=== PATIENT | female | born 1935 | race Caucasian/White ===

== ENCOUNTER 2016-06-19 10:49 | Outpatient (CLI) | payer MEDICARE, OTHER ==
[2015-06-09 06:16] VITALS: BP 108/67
[2016-06-19 11:42] LABS: eGFR (African) > 60; eGFR (Non-African) > 60
== END 2016-06-19 10:50 ==
LOC: LAB 10:49
PROVIDERS: ATTEND Clinical Nurse Specialist Medical-Surgical
DX: M81.0 Age-related osteoporosis without current pathological fracture (principal); E55.9 Vitamin D deficiency, unspecified; E21.3 Hyperparathyroidism, unspecified; Z87.310 Personal history of (healed) osteoporosis fracture; Z82.62 Family history of osteoporosis
CPT/HCPCS: 36415; 80053; 82306; 83970

== ENCOUNTER 2016-12-04 10:09 | Inpatient (IN) | payer MEDICARE, OTHER ==
[2016-12-04 13:25] VITALS: BMI 38.7
[2016-12-04] MEDS ORDERED: HYDROcodone /APAP 5/325 1 EACH TABLET PO PRN (19:25)
[2016-12-04] MEDS ORDERED: POTASSIUM CHLORIDE 20 MEQ TABLET.ER PO ONE (19:51)
[2016-12-04] MEDS: SIMVASTATIN 40 MG TABLET PO SCH ×2 (20:55→21:06)
[2016-12-04] MEDS: ASPIRIN 325 MG TABLET PO SCH (20:55)
[2016-12-04] MEDS: OXYBUTYNIN CHLORIDE 5 MG TABLET PO SCH ×2 (20:56→21:32)
[2016-12-04] MEDS: GABAPENTIN 300 MG CAPSULE PO SCH (20:56)
[2016-12-04] MEDS: SULFAMETHOXAZOLE/TRIMETHOPRIM 1 EACH TABLET PO SCH ×2 (20:56→21:06)
[2016-12-04] MEDS: PSYLLIUM SEED 1 EACH PACKET PO SCH (21:06)
[2016-12-04] MEDS ORDERED: PHARMACY KEY 1 EACH EACH MC ONE (21:11)
[2016-12-04] MEDS: PROBENECID PO SCH (21:32)
[2016-12-04] MEDS: FORTEO SQ SCH (21:32)
[2016-12-04] MEDS: COLCHICINE PO SCH (21:32)
[2016-12-05 06:22] LABS: BASOPHILS % 0.5 (0.0-1.5); EOSINOPHILS % 6.6 % (0.0-6.8); MEAN CORPUSCULAR VOLUME 86.9 fl (80.0-100.0); MONOCYTES % 8.8 % (0.0-11.0); NEUTROPHILS # 3.3 # k/uL (1.4-7.7)
[2016-12-05 06:39] LABS: eGFR (African) > 60; eGFR (Non-African) > 60
[2016-12-05] MEDS: OXYBUTYNIN CHLORIDE 5 MG TABLET PO SCH ×2 (08:37→19:30)
[2016-12-05] MEDS: COLCHICINE PO SCH ×2 (08:38→19:32)
[2016-12-05] MEDS: ASPIRIN 325 MG TABLET PO SCH ×2 (08:38→19:30)
[2016-12-05] MEDS: SULFAMETHOXAZOLE/TRIMETHOPRIM 1 EACH TABLET PO SCH ×2 (08:38→19:30)
[2016-12-05] MEDS: FUROSEMIDE 40 MG TABLET PO SCH (08:38)
[2016-12-05] MEDS: PROBENECID PO SCH ×2 (08:38→19:32)
[2016-12-05] MEDS: GABAPENTIN 300 MG CAPSULE PO SCH ×2 (08:38→19:30)
--- NOTE | 2016-12-05 10:33 | History and Physical Report ---
CHIEF COMPLAINT: Left total shoulder revision. HISTORY OF PRESENT ILLNESS: This is a 81-year-old female who is a patient of Dr. Tad Herrera here in [place] who presented after a referral to Dr. Eric Soni for a left shoulder revision. She had a left shoulder replacement done 2 years ago and it had become somewhat loose. In the interim, she had a right total shoulder replacement and that has gone without any incident. She came back and saw Dr. Soni last for revision and that was performed at [facility] and she has had a fairly unremarkable postoperative course. PAST MEDICAL HISTORY: 1. History of osteoarthritis. 2. History of parathyroid adenoma. 3. Hypertension. 4. Gout. 5. Chronic urinary incontinence. 6. Chronic pedal edema. 7. Constipation. 8. Hyperlipidemia. PAST SURGICAL HISTORY: 1. Bilateral shoulder replacements. 2. Bilateral total knee replacements. 3. Cholecystectomy. 4. Ankle fusion. 5. Parathyroidectomy. 6. Bladder suspension. 7. Back surgery x2. 8. Hip arthroplasties. 9. Total abdominal hysterectomy. CURRENT MEDICATIONS: She comes to us on the following medications: 1. Hydrocodone/acetaminophen 5/325 mg 1 to 2 p.o. q.4 hours p.r.n. pain. 2. Probenecid-colchicine 500/0.5 mg 1 p.o. b.i.d. for 7 days. 3. Metamucil 1 pack daily. 4. Bactrim DS 1 p.o. b.i.d. for 5 days. 5. Lovastatin 40 mg daily. 6. Potassium chloride 20 mEq p.o. daily. 7. Senokot S 3 p.o. daily p.r.n. constipation. 8. Gabapentin 300 mg p.o. b.i.d. 9. Lasix 40 mg p.o. daily. 10. Oxybutynin XL 10 mg p.o. b.i.d. 11. Forteo 20 mcg at bedtime. ALLERGIES: She is allergic to no known medications. SOCIAL HISTORY: She has been now for the last 3 years. Her had to be cared for the last 5 years of his life. She lives independently now. She has never smoked. She has never used any tobacco at all. She does not drink any alcohol. FAMILY HISTORY: Her father of a heart attack. Mother of cancer. She cannot remember exactly what kind of cancer that it was. She has a significant family history of osteoarthritis and obesity. PHYSICAL EXAMINATION: General: This is a very pleasant, obese, but alert and oriented 81-year-old female who appears to be approximately her stated age. Vital Signs: T: 97.4, P: 79, R: 18, BP: 143/68. Pulse oximetry is 95% on room air. HEENT: Shows her head to be normocephalic and atraumatic. Mucous membranes are moist. Neck: No JVD is noted. Lungs: Clear. Heart: Regular. Breast Exam: Her formal breast examination is deferred. Abdomen: Her abdomen is protuberant and obese. Extremities: She does have a dressing on her left shoulder, as well as a sling in place, from her left shoulder replacement. A large linear scar which runs parallel to the long axis of the right humerus is also noted on the anterior aspect of the right shoulder from a total shoulder replacement. Scars from bilateral knee replacements are noted. About 1+ edema in bilateral lower extremities is identified. Left ankle fusion scar is identified. Skin: Skin is intact. ASSESSMENT: 1. Status post left total shoulder replacement, which is a revision. 2. Hypertension. 3. Obesity. 4. Gout. 5. Hyperlipidemia. 6. Deep vein thrombosis (DVT) prophylaxis. PLAN: 1. I had a discussion with Dr. Soni's nurse practitioner today. He recommended only that we have Jolanta on aspirin 325 mg p.o. b.i.d. for DVT prophylaxis. I have gone ahead and placed her in CHRISTELLE hose. 2. Continue her current medications. 3. Occupational therapy and physical therapy consults were obtained. 4. Plan is for her to be discharged to home when she is ready to go. cc: Dr. Tad WHITE
[2016-12-05] MEDS: PSYLLIUM SEED 1 EACH PACKET PO SCH (12:16)
[2016-12-05] MEDS: TRIAMCINOLONE ACETONIDE 0.1% 80GM TUBE TP SCH ×2 (12:17→19:31)
[2016-12-05] MEDS: POTASSIUM CHLORIDE 20 MEQ TABLET.ER PO SCH (12:17)
[2016-12-05] MEDS: SIMVASTATIN 40 MG TABLET PO SCH (19:30)
[2016-12-05] MEDS: FORTEO SQ SCH (19:31)
[2016-12-06] MEDS: SULFAMETHOXAZOLE/TRIMETHOPRIM 1 EACH TABLET PO SCH ×2 (09:49→19:58)
[2016-12-06] MEDS: GABAPENTIN 300 MG CAPSULE PO SCH ×2 (09:50→19:59)
[2016-12-06] MEDS: OXYBUTYNIN CHLORIDE 5 MG TABLET PO SCH ×2 (09:50→19:58)
[2016-12-06] MEDS: ASPIRIN 325 MG TABLET PO SCH ×2 (09:50→19:57)
[2016-12-06] MEDS: COLCHICINE PO SCH ×2 (09:51→20:00)
[2016-12-06] MEDS: PROBENECID PO SCH ×2 (09:51→20:00)
[2016-12-06] MEDS: FUROSEMIDE 40 MG TABLET PO SCH (09:51)
[2016-12-06] MEDS: POTASSIUM CHLORIDE 20 MEQ TABLET.ER PO SCH (09:52)
[2016-12-06] MEDS: TRIAMCINOLONE ACETONIDE 0.1% 80GM TUBE TP SCH ×2 (09:52→19:59)
[2016-12-06] MEDS: PSYLLIUM SEED 1 EACH PACKET PO SCH (13:11)
[2016-12-06] MEDS: SIMVASTATIN 40 MG TABLET PO SCH (19:59)
[2016-12-06] MEDS: FORTEO SQ SCH (20:04)
[2016-12-07] MEDS: FUROSEMIDE 40 MG TABLET PO SCH (08:09)
[2016-12-07] MEDS: OXYBUTYNIN CHLORIDE 5 MG TABLET PO SCH ×2 (08:09→20:19)
[2016-12-07] MEDS: TRIAMCINOLONE ACETONIDE 0.1% 80GM TUBE TP SCH ×2 (08:09→20:21)
[2016-12-07] MEDS: GABAPENTIN 300 MG CAPSULE PO SCH ×2 (08:09→20:22)
[2016-12-07] MEDS: POTASSIUM CHLORIDE 20 MEQ TABLET.ER PO SCH (08:09)
[2016-12-07] MEDS: SULFAMETHOXAZOLE/TRIMETHOPRIM 1 EACH TABLET PO SCH ×2 (08:09→20:19)
[2016-12-07] MEDS: ASPIRIN 325 MG TABLET PO SCH ×2 (08:09→20:18)
[2016-12-07] MEDS: COLCHICINE PO SCH (08:10)
[2016-12-07] MEDS: PROBENECID PO SCH (08:10)
[2016-12-07] MEDS: PSYLLIUM SEED 1 EACH PACKET PO SCH (11:15)
[2016-12-07] MEDS: PROBENECID COLCHICINE PO SCH (20:22)
[2016-12-07] MEDS: SIMVASTATIN 40 MG TABLET PO SCH (20:23)
[2016-12-07] MEDS: TERIPARATIDE SQ SCH (20:26)
[2016-12-08] MEDS: ASPIRIN 325 MG TABLET PO SCH ×2 (07:25→19:56)
[2016-12-08] MEDS: OXYBUTYNIN CHLORIDE 5 MG TABLET PO SCH ×2 (07:26→19:56)
[2016-12-08] MEDS: TRIAMCINOLONE ACETONIDE 0.1% 80GM TUBE TP SCH ×2 (07:26→20:18)
[2016-12-08] MEDS: SULFAMETHOXAZOLE/TRIMETHOPRIM 1 EACH TABLET PO SCH ×2 (07:26→19:56)
[2016-12-08] MEDS: POTASSIUM CHLORIDE 20 MEQ TABLET.ER PO SCH (07:28)
[2016-12-08] MEDS: FUROSEMIDE 40 MG TABLET PO SCH (07:29)
[2016-12-08] MEDS: GABAPENTIN 300 MG CAPSULE PO SCH ×2 (07:29→19:56)
[2016-12-08] MEDS: PROBENECID COLCHICINE PO SCH ×2 (07:30→19:56)
[2016-12-08] MEDS: PSYLLIUM SEED 1 EACH PACKET PO SCH (11:44)
[2016-12-08] MEDS: SIMVASTATIN 40 MG TABLET PO SCH (19:56)
[2016-12-08] MEDS: TERIPARATIDE SQ SCH (19:57)
[2016-12-09] MEDS: PSYLLIUM SEED 1 EACH PACKET PO SCH (06:27)
[2016-12-09] MEDS: ASPIRIN 325 MG TABLET PO SCH ×2 (07:32→19:54)
[2016-12-09] MEDS: OXYBUTYNIN CHLORIDE 5 MG TABLET PO SCH ×2 (07:33→19:54)
[2016-12-09] MEDS: SULFAMETHOXAZOLE/TRIMETHOPRIM 1 EACH TABLET PO SCH ×2 (07:33→19:54)
[2016-12-09] MEDS: GABAPENTIN 300 MG CAPSULE PO SCH ×2 (07:34→19:54)
[2016-12-09] MEDS: FUROSEMIDE 40 MG TABLET PO SCH (07:35)
[2016-12-09] MEDS: POTASSIUM CHLORIDE 20 MEQ TABLET.ER PO SCH (07:35)
[2016-12-09] MEDS: TRIAMCINOLONE ACETONIDE 0.1% 80GM TUBE TP SCH ×2 (07:36→19:55)
[2016-12-09] MEDS: PROBENECID COLCHICINE PO SCH ×2 (09:47→19:56)
[2016-12-09] MEDS: SIMVASTATIN 40 MG TABLET PO SCH (19:54)
[2016-12-09] MEDS: TERIPARATIDE SQ SCH (19:55)
[2016-12-10] MEDS: PSYLLIUM SEED 1 EACH PACKET PO SCH (05:53)
[2016-12-10] MEDS: ASPIRIN 325 MG TABLET PO SCH ×2 (07:33→19:44)
[2016-12-10] MEDS: OXYBUTYNIN CHLORIDE 5 MG TABLET PO SCH ×2 (07:33→19:43)
[2016-12-10] MEDS: TRIAMCINOLONE ACETONIDE 0.1% 80GM TUBE TP SCH ×2 (07:34→19:44)
[2016-12-10] MEDS: SULFAMETHOXAZOLE/TRIMETHOPRIM 1 EACH TABLET PO SCH ×2 (07:34→19:43)
[2016-12-10] MEDS: POTASSIUM CHLORIDE 20 MEQ TABLET.ER PO SCH (07:35)
[2016-12-10] MEDS: FUROSEMIDE 40 MG TABLET PO SCH (07:35)
[2016-12-10] MEDS: GABAPENTIN 300 MG CAPSULE PO SCH ×2 (07:36→19:44)
[2016-12-10] MEDS: PROBENECID COLCHICINE PO SCH ×2 (07:37→19:45)
[2016-12-10] MEDS: SIMVASTATIN 40 MG TABLET PO SCH (19:43)
[2016-12-10] MEDS: TERIPARATIDE SQ SCH (19:44)
[2016-12-11] MEDS: PSYLLIUM SEED 1 EACH PACKET PO SCH (05:56)
[2016-12-11] MEDS: SULFAMETHOXAZOLE/TRIMETHOPRIM 1 EACH TABLET PO SCH ×2 (07:20→20:14)
[2016-12-11] MEDS: OXYBUTYNIN CHLORIDE 5 MG TABLET PO SCH ×2 (07:21→20:14)
[2016-12-11] MEDS: GABAPENTIN 300 MG CAPSULE PO SCH ×2 (07:21→20:14)
[2016-12-11] MEDS: ASPIRIN 325 MG TABLET PO SCH ×2 (07:21→20:14)
[2016-12-11] MEDS: FUROSEMIDE 40 MG TABLET PO SCH (07:21)
[2016-12-11] MEDS: POTASSIUM CHLORIDE 20 MEQ TABLET.ER PO SCH (07:22)
[2016-12-11] MEDS: PROBENECID COLCHICINE PO SCH ×2 (07:22→20:15)
[2016-12-11] MEDS: TRIAMCINOLONE ACETONIDE 0.1% 80GM TUBE TP SCH ×2 (07:22→20:14)
[2016-12-11] MEDS: SIMVASTATIN 40 MG TABLET PO SCH (20:15)
[2016-12-11] MEDS: TERIPARATIDE SQ SCH (20:20)
[2016-12-12] MEDS: PSYLLIUM SEED 1 EACH PACKET PO SCH (05:40)
[2016-12-12] MEDS: FUROSEMIDE 40 MG TABLET PO SCH (07:32)
[2016-12-12] MEDS: ASPIRIN 325 MG TABLET PO SCH ×2 (07:32→19:52)
[2016-12-12] MEDS: GABAPENTIN 300 MG CAPSULE PO SCH ×2 (07:32→19:52)
[2016-12-12] MEDS: SULFAMETHOXAZOLE/TRIMETHOPRIM 1 EACH TABLET PO SCH ×2 (07:32→19:52)
[2016-12-12] MEDS: OXYBUTYNIN CHLORIDE 5 MG TABLET PO SCH ×2 (07:32→19:52)
[2016-12-12] MEDS: POTASSIUM CHLORIDE 20 MEQ TABLET.ER PO SCH (07:32)
[2016-12-12] MEDS: PROBENECID COLCHICINE PO SCH (07:33)
--- NOTE | 2016-12-12 10:40 | Inpatient Progress Note ---
Subjective - Required Recertification Statement I anticipate X number of days because-include discharge plan: 7 - Review of Systems Events since last encounter: Jolanta is doing well. She is participating in therapy. She denies that she is having any pain currently. She is going down to have her hair done today. General: Denies: Chills HEENT: Denies: Head Aches, Visual Changes Pulmonary: Denies: Dyspnea, Cough Cardiovascular: Denies: Chest Pain, Palpitations Gastrointestinal: Denies: Nausea, Vomiting Genitourinary: Denies: Dysuria, Frequency Musculoskeletal: Shoulder Pain (very minimal). Denies: Neck Pain Neurological: Denies: Weakness, Change in Speech, Confusion Objective - Exam Vitals and I&O: Vital Signs Temp 97.6 F 12/12/16 09:00 Pulse 77 12/12/16 09:00 Resp 16 12/12/16 09:00 BP 109/55 12/12/16 09:00 Pulse Ox 96 12/12/16 09:00 Intake & Output 12/11/16 12/11/16 12/12/16 11:59 23:59 11:59 Intake Total 720 860 240 Balance 720 860 240 Weight 101.06 kg 101.06 kg Intake: Oral 720 860 240 Other: Voiding Method Diaper Toilet Toilet # Voids 2 3 2 General: Alert, Oriented to Person, Oriented to Place, Oriented to Time, Cooperative, Obese HEENT: Atraumatic, PERRLA, EOMI Neck: Supple, No JVD Lungs: Clear to auscultation. No: Respiratory Distress Cardiovascular: Regular rate Abdomen: Normal bowel sounds Extremities: No edema Skin: Normal, [place], Warm Neurological: Generalized Weakness (and incoordination) Psych/Mental Status: Mental status NL - Results Results: Laboratory Results WBC 5.60 K/ul (4.00-12.00) 12/05/16 06:00 RBC 4.16 M/ul (3.90-5.20) 12/05/16 06:00 Hgb 12.0 g/dL (12.0-16.0) 12/05/16 06:00 Hct 36.1 % (34.5-46.5) 12/05/16 06:00 MCV 86.9 fl (80.0-100.0) 12/05/16 06:00 MCH 29.0 pg (28.0-34.0) 12/05/16 06:00 MCHC 33.3 g/dL (30.0-36.0) 12/05/16 06:00 RDW 14.6 % (11.3-14.3) H 12/05/16 06:00 Plt Count 254 K/mm3 (130-400) 12/05/16 06:00 Neut % (Auto) 59.7 % (39.0-79.0) 12/05/16 06:00 Lymph % (Auto) 22.0 % (16.0-50.0) 12/05/16 06:00 Levy % (Auto) 8.8 % (0.0-11.0) 12/05/16 06:00 Eos % (Auto) 6.6 % (0.0-6.8) 12/05/16 06:00 Baso % (Auto) 0.5 (0.0-1.5) 12/05/16 06:00 Neut # (Auto) 3.3 # k/uL (1.4-7.7) 12/05/16 06:00 Lymph # (Auto) 1.2 # k/uL (0.6-4.0) 12/05/16 06:00 Levy # (Auto) 0.5 # k/uL (0.0-0.9) 12/05/16 06:00 Eos # (Auto) 0.4 # k/uL (0.0-0.6) 12/05/16 06:00 Baso # (Auto) 0.0 # k/uL (0.0-0.5) 12/05/16 06:00 Reactive Lymphs % 2.4 % (0.0-5.0) 12/05/16 06:00 Reactive Lymphs # 0.1 # k/uL (0.0-0.8) 12/05/16 06:00 Sodium 137 mmol/L (136-145) 12/05/16 06:00 Potassium 3.9 mmol/L (3.5-5.0) 12/05/16 06:00 Chloride 96 mmol/L (98-110) L 12/05/16 06:00 Carbon Dioxide 32 mmol/L (20-32) 12/05/16 06:00 BUN 21 mg/dL (10-26) 12/05/16 06:00 Creatinine 1.1 mg/dL (0.4-1.5) 12/05/16 06:00 Estimated Creat Clear 69 12/05/16 06:00 Est GFR ( Amer) > 60 (60-) 12/05/16 06:00 Est GFR (Non-Af Amer) > 60 (60-) 12/05/16 06:00 Glucose 101 mg/dL (70-99) H 12/05/16 06:00 Calcium 9.2 mg/dL (8.5-10.5) 12/05/16 06:00 Total Bilirubin 0.3 mg/dL (0.2-1.2) 12/05/16 06:00 AST 28 U/L (0-41) 12/05/16 06:00 ALT 15 U/L (0-45) 12/05/16 06:00 Alkaline Phosphatase 156 U/L (46-116) H 12/05/16 06:00 Total Protein 6.6 g/dL (6.0-8.5) 12/05/16 06:00 Albumin 4.0 g/dL (3.0-5.5) 12/05/16 06:00 Assessment/Plan - Assessment/Plan (1) Aftercare following left shoulder joint replacement surgery Status: Acute Current Visit: Yes (2) Hypertension Status: Acute Current Visit: No (3) Gout Status: Acute Current Visit: Yes Assessment: Stable and without flare (4) Obesity (BMI 30.0-34.9) Status: Acute Current Visit: Yes Assessment: Stable
[2016-12-12] MEDS: TRIAMCINOLONE ACETONIDE 0.1% 80GM TUBE TP SCH ×2 (13:33→19:53)
[2016-12-12] MEDS: SIMVASTATIN 40 MG TABLET PO SCH (19:52)
[2016-12-12] MEDS: TERIPARATIDE SQ SCH (19:53)
[2016-12-13] MEDS: OXYBUTYNIN CHLORIDE 5 MG TABLET PO SCH ×2 (08:22→21:37)
[2016-12-13] MEDS: POTASSIUM CHLORIDE 20 MEQ TABLET.ER PO SCH (08:22)
[2016-12-13] MEDS: TRIAMCINOLONE ACETONIDE 0.1% 80GM TUBE TP SCH ×2 (08:22→21:38)
[2016-12-13] MEDS: SULFAMETHOXAZOLE/TRIMETHOPRIM 1 EACH TABLET PO SCH ×2 (08:22→21:36)
[2016-12-13] MEDS: ASPIRIN 325 MG TABLET PO SCH ×2 (08:22→21:37)
[2016-12-13] MEDS: GABAPENTIN 300 MG CAPSULE PO SCH ×2 (08:22→21:37)
[2016-12-13] MEDS: FUROSEMIDE 40 MG TABLET PO SCH (08:22)
[2016-12-13] MEDS: PSYLLIUM SEED 1 EACH PACKET PO SCH (11:10)
[2016-12-13] MEDS: SIMVASTATIN 40 MG TABLET PO SCH (21:37)
[2016-12-13] MEDS: TERIPARATIDE SQ SCH (21:38)
[2016-12-14] MEDS: PSYLLIUM SEED 1 EACH PACKET PO SCH (05:31)
[2016-12-14] MEDS: ASPIRIN 325 MG TABLET PO SCH ×2 (07:24→20:19)
[2016-12-14] MEDS: SULFAMETHOXAZOLE/TRIMETHOPRIM 1 EACH TABLET PO SCH (07:24)
[2016-12-14] MEDS: OXYBUTYNIN CHLORIDE 5 MG TABLET PO SCH ×2 (07:24→20:19)
[2016-12-14] MEDS: TRIAMCINOLONE ACETONIDE 0.1% 80GM TUBE TP SCH ×2 (07:24→20:20)
[2016-12-14] MEDS: GABAPENTIN 300 MG CAPSULE PO SCH ×2 (07:25→20:19)
[2016-12-14] MEDS: POTASSIUM CHLORIDE 20 MEQ TABLET.ER PO SCH (07:25)
[2016-12-14] MEDS: FUROSEMIDE 40 MG TABLET PO SCH (07:25)
[2016-12-14] MEDS: SIMVASTATIN 40 MG TABLET PO SCH (20:19)
[2016-12-14] MEDS: TERIPARATIDE SQ SCH (20:20)
[2016-12-15] MEDS: OXYBUTYNIN CHLORIDE 5 MG TABLET PO SCH ×2 (07:44→20:47)
[2016-12-15] MEDS: ASPIRIN 325 MG TABLET PO SCH ×2 (07:44→20:47)
[2016-12-15] MEDS: TRIAMCINOLONE ACETONIDE 0.1% 80GM TUBE TP SCH ×2 (07:45→20:47)
[2016-12-15] MEDS: FUROSEMIDE 40 MG TABLET PO SCH (07:45)
[2016-12-15] MEDS: POTASSIUM CHLORIDE 20 MEQ TABLET.ER PO SCH (07:45)
[2016-12-15] MEDS: GABAPENTIN 300 MG CAPSULE PO SCH ×2 (07:45→20:48)
[2016-12-15] MEDS: PSYLLIUM SEED 1 EACH PACKET PO SCH (11:27)
[2016-12-15] MEDS: SIMVASTATIN 40 MG TABLET PO SCH (20:48)
[2016-12-15] MEDS: TERIPARATIDE SQ SCH (20:51)
[2016-12-15] MEDS: SENNOSIDES/DOCUSATE SODIUM 1 EACH TABLET PO PRN (20:51)
[2016-12-16] MEDS: TRIAMCINOLONE ACETONIDE 0.1% 80GM TUBE TP SCH ×2 (08:08→18:49)
[2016-12-16] MEDS: OXYBUTYNIN CHLORIDE 5 MG TABLET PO SCH ×2 (08:08→18:48)
[2016-12-16] MEDS: ASPIRIN 325 MG TABLET PO SCH ×2 (08:08→18:49)
[2016-12-16] MEDS: POTASSIUM CHLORIDE 20 MEQ TABLET.ER PO SCH (08:08)
[2016-12-16] MEDS: FUROSEMIDE 40 MG TABLET PO SCH (08:09)
[2016-12-16] MEDS: GABAPENTIN 300 MG CAPSULE PO SCH ×2 (08:09→18:50)
[2016-12-16] MEDS: PSYLLIUM SEED 1 EACH PACKET PO SCH (11:06)
[2016-12-16] MEDS: SIMVASTATIN 40 MG TABLET PO SCH (18:50)
[2016-12-16] MEDS: TERIPARATIDE SQ SCH (18:52)
[2016-12-17] MEDS: PSYLLIUM SEED 1 EACH PACKET PO SCH (06:45)
[2016-12-17] MEDS: ASPIRIN 325 MG TABLET PO SCH ×2 (08:09→20:03)
[2016-12-17] MEDS: TRIAMCINOLONE ACETONIDE 0.1% 80GM TUBE TP SCH ×2 (08:10→20:04)
[2016-12-17] MEDS: FUROSEMIDE 40 MG TABLET PO SCH (08:10)
[2016-12-17] MEDS: POTASSIUM CHLORIDE 20 MEQ TABLET.ER PO SCH (08:10)
[2016-12-17] MEDS: OXYBUTYNIN CHLORIDE 5 MG TABLET PO SCH ×2 (08:10→20:03)
[2016-12-17] MEDS: GABAPENTIN 300 MG CAPSULE PO SCH ×2 (08:11→20:03)
[2016-12-17] MEDS: TERIPARATIDE SQ SCH (20:03)
[2016-12-17] MEDS: SIMVASTATIN 40 MG TABLET PO SCH (20:03)
[2016-12-18] MEDS ORDERED: traMADol HCL 50 MG TABLET ONE (00:45)
[2016-12-18] MEDS: PSYLLIUM SEED 1 EACH PACKET PO SCH (05:00)
[2016-12-18] MEDS: ASPIRIN 325 MG TABLET PO SCH ×2 (07:47→19:44)
[2016-12-18] MEDS: FUROSEMIDE 40 MG TABLET PO SCH (07:47)
[2016-12-18] MEDS: OXYBUTYNIN CHLORIDE 5 MG TABLET PO SCH ×2 (07:47→19:44)
[2016-12-18] MEDS: GABAPENTIN 300 MG CAPSULE PO SCH ×2 (07:47→19:44)
[2016-12-18] MEDS: POTASSIUM CHLORIDE 20 MEQ TABLET.ER PO SCH (07:48)
[2016-12-18] MEDS: TRIAMCINOLONE ACETONIDE 0.1% 80GM TUBE TP SCH ×2 (07:51→19:44)
[2016-12-18] MEDS: SIMVASTATIN 40 MG TABLET PO SCH (19:49)
[2016-12-18] MEDS: TERIPARATIDE SQ SCH (19:52)
[2016-12-18] MEDS: SENNOSIDES/DOCUSATE SODIUM 1 EACH TABLET PO PRN (19:56)
[2016-12-18] MEDS: BISACODYL 5 MG TABLET.DR PO PRN (19:56)
[2016-12-19] MEDS: PSYLLIUM SEED 1 EACH PACKET PO SCH (05:34)
[2016-12-19] MEDS: ASPIRIN 325 MG TABLET PO SCH ×2 (07:31→20:34)
[2016-12-19] MEDS: GABAPENTIN 300 MG CAPSULE PO SCH ×2 (07:31→20:34)
[2016-12-19] MEDS: OXYBUTYNIN CHLORIDE 5 MG TABLET PO SCH ×2 (07:31→20:34)
[2016-12-19] MEDS: FUROSEMIDE 40 MG TABLET PO SCH (07:32)
[2016-12-19] MEDS: TRIAMCINOLONE ACETONIDE 0.1% 80GM TUBE TP SCH ×2 (07:32→20:34)
[2016-12-19] MEDS: POTASSIUM CHLORIDE 20 MEQ TABLET.ER PO SCH (07:32)
[2016-12-19] MEDS: SIMVASTATIN 40 MG TABLET PO SCH (20:34)
[2016-12-19] MEDS: TERIPARATIDE SQ SCH (20:40)
[2016-12-20] MEDS: PSYLLIUM SEED 1 EACH PACKET PO SCH (05:33)
[2016-12-20] MEDS: ASPIRIN 325 MG TABLET PO SCH ×2 (09:04→20:05)
[2016-12-20] MEDS: POTASSIUM CHLORIDE 20 MEQ TABLET.ER PO SCH (09:04)
[2016-12-20] MEDS: OXYBUTYNIN CHLORIDE 5 MG TABLET PO SCH ×2 (09:05→20:05)
[2016-12-20] MEDS: FUROSEMIDE 40 MG TABLET PO SCH (09:05)
[2016-12-20] MEDS: TRIAMCINOLONE ACETONIDE 0.1% 80GM TUBE TP SCH ×2 (09:05→20:05)
[2016-12-20] MEDS: GABAPENTIN 300 MG CAPSULE PO SCH ×2 (09:06→20:05)
[2016-12-20] MEDS: SIMVASTATIN 40 MG TABLET PO SCH (20:05)
[2016-12-20] MEDS: TERIPARATIDE SQ SCH (20:05)
[2016-12-21] MEDS: PSYLLIUM SEED 1 EACH PACKET PO SCH (05:50)
[2016-12-21] MEDS: ASPIRIN 325 MG TABLET PO SCH ×2 (07:43→21:15)
[2016-12-21] MEDS: OXYBUTYNIN CHLORIDE 5 MG TABLET PO SCH ×2 (07:43→21:15)
[2016-12-21] MEDS: POTASSIUM CHLORIDE 20 MEQ TABLET.ER PO SCH (07:43)
[2016-12-21] MEDS: TRIAMCINOLONE ACETONIDE 0.1% 80GM TUBE TP SCH ×2 (07:43→21:16)
[2016-12-21] MEDS: FUROSEMIDE 40 MG TABLET PO SCH (07:44)
[2016-12-21] MEDS: GABAPENTIN 300 MG CAPSULE PO SCH ×2 (07:44→21:16)
[2016-12-21] MEDS: TERIPARATIDE SQ SCH (21:15)
[2016-12-21] MEDS: SIMVASTATIN 40 MG TABLET PO SCH (21:16)
[2016-12-21] MEDS: SENNOSIDES/DOCUSATE SODIUM 1 EACH TABLET PO PRN (21:18)
[2016-12-22] MEDS: PSYLLIUM SEED 1 EACH PACKET PO SCH (05:11)
[2016-12-22] MEDS: FUROSEMIDE 40 MG TABLET PO SCH (07:32)
[2016-12-22] MEDS: OXYBUTYNIN CHLORIDE 5 MG TABLET PO SCH ×2 (07:32→20:17)
[2016-12-22] MEDS: TRIAMCINOLONE ACETONIDE 0.1% 80GM TUBE TP SCH ×2 (07:32→20:26)
[2016-12-22] MEDS: POTASSIUM CHLORIDE 20 MEQ TABLET.ER PO SCH (07:32)
[2016-12-22] MEDS: ASPIRIN 325 MG TABLET PO SCH ×2 (07:32→20:17)
[2016-12-22] MEDS: GABAPENTIN 300 MG CAPSULE PO SCH ×2 (07:33→20:17)
[2016-12-22] MEDS: SENNOSIDES/DOCUSATE SODIUM 1 EACH TABLET PO PRN (20:17)
[2016-12-22] MEDS: SIMVASTATIN 40 MG TABLET PO SCH (20:17)
[2016-12-22] MEDS: TERIPARATIDE SQ SCH (20:17)
[2016-12-23] MEDS: PSYLLIUM SEED 1 EACH PACKET PO SCH (05:23)
[2016-12-23] MEDS: TRIAMCINOLONE ACETONIDE 0.1% 80GM TUBE TP SCH ×2 (08:15→19:28)
[2016-12-23] MEDS: OXYBUTYNIN CHLORIDE 5 MG TABLET PO SCH ×2 (08:15→19:27)
[2016-12-23] MEDS: FUROSEMIDE 40 MG TABLET PO SCH (08:15)
[2016-12-23] MEDS: ASPIRIN 325 MG TABLET PO SCH ×2 (08:15→19:28)
[2016-12-23] MEDS: POTASSIUM CHLORIDE 20 MEQ TABLET.ER PO SCH (08:15)
[2016-12-23] MEDS: GABAPENTIN 300 MG CAPSULE PO SCH ×2 (08:15→19:27)
[2016-12-23] MEDS: TERIPARATIDE SQ SCH (19:26)
[2016-12-23] MEDS: SIMVASTATIN 40 MG TABLET PO SCH (19:28)
[2016-12-24] MEDS: PSYLLIUM SEED 1 EACH PACKET PO SCH (05:07)
[2016-12-24] MEDS: GABAPENTIN 300 MG CAPSULE PO SCH ×2 (08:29→20:20)
[2016-12-24] MEDS: ASPIRIN 325 MG TABLET PO SCH ×2 (08:29→20:19)
[2016-12-24] MEDS: POTASSIUM CHLORIDE 20 MEQ TABLET.ER PO SCH (08:29)
[2016-12-24] MEDS: OXYBUTYNIN CHLORIDE 5 MG TABLET PO SCH ×2 (08:30→20:19)
[2016-12-24] MEDS: TRIAMCINOLONE ACETONIDE 0.1% 80GM TUBE TP SCH ×2 (08:30→20:20)
[2016-12-24] MEDS: FUROSEMIDE 40 MG TABLET PO SCH (08:30)
[2016-12-24] MEDS: SIMVASTATIN 40 MG TABLET PO SCH (20:20)
[2016-12-24] MEDS: BISACODYL 5 MG TABLET.DR PO PRN (20:25)
[2016-12-24] MEDS: TERIPARATIDE SQ SCH (20:31)
[2016-12-25] MEDS: PSYLLIUM SEED 1 EACH PACKET PO SCH (05:03)
[2016-12-25] MEDS: ASPIRIN 325 MG TABLET PO SCH ×2 (07:19→19:47)
[2016-12-25] MEDS: OXYBUTYNIN CHLORIDE 5 MG TABLET PO SCH ×2 (07:20→19:44)
[2016-12-25] MEDS: FUROSEMIDE 40 MG TABLET PO SCH (07:20)
[2016-12-25] MEDS: GABAPENTIN 300 MG CAPSULE PO SCH ×2 (07:20→19:45)
[2016-12-25] MEDS: POTASSIUM CHLORIDE 20 MEQ TABLET.ER PO SCH (07:21)
[2016-12-25] MEDS: TRIAMCINOLONE ACETONIDE 0.1% 80GM TUBE TP SCH ×2 (10:40→20:53)
[2016-12-25] MEDS: SIMVASTATIN 40 MG TABLET PO SCH (19:44)
[2016-12-25] MEDS: TERIPARATIDE SQ SCH (19:53)
[2016-12-26] MEDS: PSYLLIUM SEED 1 EACH PACKET PO SCH (04:55)
[2016-12-26] MEDS: ASPIRIN 325 MG TABLET PO SCH ×2 (07:33→19:59)
[2016-12-26] MEDS: OXYBUTYNIN CHLORIDE 5 MG TABLET PO SCH ×2 (07:33→19:59)
[2016-12-26] MEDS: TRIAMCINOLONE ACETONIDE 0.1% 80GM TUBE TP SCH ×2 (07:33→20:00)
[2016-12-26] MEDS: GABAPENTIN 300 MG CAPSULE PO SCH ×2 (07:33→19:59)
[2016-12-26] MEDS: FUROSEMIDE 40 MG TABLET PO SCH (07:33)
[2016-12-26] MEDS: POTASSIUM CHLORIDE 20 MEQ TABLET.ER PO SCH (07:33)
[2016-12-26] MEDS: SIMVASTATIN 40 MG TABLET PO SCH (19:59)
[2016-12-26] MEDS: TERIPARATIDE SQ SCH (20:02)
[2016-12-26] MEDS: SENNOSIDES/DOCUSATE SODIUM 1 EACH TABLET PO PRN (20:03)
[2016-12-27] MEDS: PSYLLIUM SEED 1 EACH PACKET PO SCH (05:57)
[2016-12-27 06:31] LABS: eGFR (African) > 60; eGFR (Non-African) > 60
[2016-12-27] MEDS: TRIAMCINOLONE ACETONIDE 0.1% 80GM TUBE TP SCH ×2 (08:20→19:44)
[2016-12-27] MEDS: POTASSIUM CHLORIDE 20 MEQ TABLET.ER PO SCH (08:20)
[2016-12-27] MEDS: FUROSEMIDE 40 MG TABLET PO SCH (08:20)
[2016-12-27] MEDS: OXYBUTYNIN CHLORIDE 5 MG TABLET PO SCH ×2 (08:20→19:43)
[2016-12-27] MEDS: ASPIRIN 325 MG TABLET PO SCH ×2 (08:20→19:43)
[2016-12-27] MEDS: GABAPENTIN 300 MG CAPSULE PO SCH ×2 (08:20→19:43)
[2016-12-27] MEDS: SIMVASTATIN 40 MG TABLET PO SCH (19:43)
[2016-12-27] MEDS: TERIPARATIDE SQ SCH (19:43)
[2016-12-28] MEDS: PSYLLIUM SEED 1 EACH PACKET PO SCH (05:28)
[2016-12-28] MEDS: OXYBUTYNIN CHLORIDE 5 MG TABLET PO SCH ×2 (08:01→20:21)
[2016-12-28] MEDS: ASPIRIN 325 MG TABLET PO SCH ×2 (08:02→20:21)
[2016-12-28] MEDS: GABAPENTIN 300 MG CAPSULE PO SCH ×2 (08:02→20:21)
[2016-12-28] MEDS: POTASSIUM CHLORIDE 20 MEQ TABLET.ER PO SCH (08:03)
[2016-12-28] MEDS: TRIAMCINOLONE ACETONIDE 0.1% 80GM TUBE TP SCH ×2 (08:03→20:21)
[2016-12-28] MEDS: FUROSEMIDE 40 MG TABLET PO SCH (08:03)
[2016-12-28] MEDS: TERIPARATIDE SQ SCH (20:17)
[2016-12-28] MEDS: SIMVASTATIN 40 MG TABLET PO SCH (20:21)
[2016-12-29] MEDS: PSYLLIUM SEED 1 EACH PACKET PO SCH (05:31)
[2016-12-29] MEDS: OXYBUTYNIN CHLORIDE 5 MG TABLET PO SCH ×2 (08:06→19:30)
[2016-12-29] MEDS: ASPIRIN 325 MG TABLET PO SCH ×2 (08:06→19:30)
[2016-12-29] MEDS: TRIAMCINOLONE ACETONIDE 0.1% 80GM TUBE TP SCH ×2 (08:06→19:45)
[2016-12-29] MEDS: FUROSEMIDE 40 MG TABLET PO SCH (08:07)
[2016-12-29] MEDS: GABAPENTIN 300 MG CAPSULE PO SCH ×2 (08:07→19:30)
[2016-12-29] MEDS: POTASSIUM CHLORIDE 20 MEQ TABLET.ER PO SCH (08:07)
[2016-12-29] MEDS: SIMVASTATIN 40 MG TABLET PO SCH (19:30)
[2016-12-29] MEDS: SENNOSIDES/DOCUSATE SODIUM 1 EACH TABLET PO PRN (19:33)
[2016-12-29] MEDS: TERIPARATIDE SQ SCH (19:33)
[2016-12-30] MEDS: PSYLLIUM SEED 1 EACH PACKET PO SCH (05:15)
[2016-12-30] MEDS: OXYBUTYNIN CHLORIDE 5 MG TABLET PO SCH ×2 (07:33→19:53)
[2016-12-30] MEDS: FUROSEMIDE 40 MG TABLET PO SCH (07:34)
[2016-12-30] MEDS: GABAPENTIN 300 MG CAPSULE PO SCH ×2 (07:34→19:53)
[2016-12-30] MEDS: ASPIRIN 325 MG TABLET PO SCH ×2 (07:34→19:52)
[2016-12-30] MEDS: TRIAMCINOLONE ACETONIDE 0.1% 80GM TUBE TP SCH ×2 (07:35→19:53)
[2016-12-30] MEDS: POTASSIUM CHLORIDE 20 MEQ TABLET.ER PO SCH (07:35)
[2016-12-30] MEDS: predniSONE 20 MG TABLET PO SCH ×2 (13:16→19:53)
[2016-12-30] MEDS: SIMVASTATIN 40 MG TABLET PO SCH (19:53)
[2016-12-30] MEDS: SENNOSIDES/DOCUSATE SODIUM 1 EACH TABLET PO PRN (19:55)
[2016-12-30] MEDS: TERIPARATIDE SQ SCH (19:56)
[2016-12-31] MEDS: OXYBUTYNIN CHLORIDE 5 MG TABLET PO SCH ×2 (12:33→20:02)
[2016-12-31] MEDS: ASPIRIN 325 MG TABLET PO SCH ×2 (12:36→20:02)
[2016-12-31] MEDS: GABAPENTIN 300 MG CAPSULE PO SCH ×2 (12:37→20:02)
[2016-12-31] MEDS: FUROSEMIDE 40 MG TABLET PO SCH (12:37)
[2016-12-31] MEDS: POTASSIUM CHLORIDE 20 MEQ TABLET.ER PO SCH (12:37)
[2016-12-31] MEDS: TRIAMCINOLONE ACETONIDE 0.1% 80GM TUBE TP SCH ×2 (12:37→20:03)
[2016-12-31] MEDS: PSYLLIUM SEED 1 EACH PACKET PO SCH (12:37)
[2016-12-31] MEDS: predniSONE 20 MG TABLET PO SCH ×2 (12:38→20:02)
[2016-12-31] MEDS: SIMVASTATIN 40 MG TABLET PO SCH (20:02)
[2016-12-31] MEDS: TERIPARATIDE SQ SCH (20:03)
[2017-01-01] MEDS: PSYLLIUM SEED 1 EACH PACKET PO SCH (05:20)
[2017-01-01] MEDS: OXYBUTYNIN CHLORIDE 5 MG TABLET PO SCH ×2 (08:55→19:28)
[2017-01-01] MEDS: GABAPENTIN 300 MG CAPSULE PO SCH ×2 (08:55→19:25)
[2017-01-01] MEDS: ASPIRIN 325 MG TABLET PO SCH ×2 (08:55→19:24)
[2017-01-01] MEDS: FUROSEMIDE 40 MG TABLET PO SCH (08:56)
[2017-01-01] MEDS: POTASSIUM CHLORIDE 20 MEQ TABLET.ER PO SCH (08:56)
[2017-01-01] MEDS: TRIAMCINOLONE ACETONIDE 0.1% 80GM TUBE TP SCH ×2 (08:56→19:26)
[2017-01-01] MEDS: predniSONE 20 MG TABLET PO SCH ×2 (08:56→19:24)
[2017-01-01] MEDS: SIMVASTATIN 40 MG TABLET PO SCH (19:28)
[2017-01-01] MEDS: TERIPARATIDE SQ SCH (20:47)
[2017-01-02] MEDS: PSYLLIUM SEED 1 EACH PACKET PO SCH (04:45)
[2017-01-02] MEDS: OXYBUTYNIN CHLORIDE 5 MG TABLET PO SCH ×2 (09:27→19:43)
[2017-01-02] MEDS: ASPIRIN 325 MG TABLET PO SCH ×2 (09:28→19:42)
[2017-01-02] MEDS: GABAPENTIN 300 MG CAPSULE PO SCH ×2 (09:28→19:45)
[2017-01-02] MEDS: TRIAMCINOLONE ACETONIDE 0.1% 80GM TUBE TP SCH ×2 (09:29→19:50)
[2017-01-02] MEDS: predniSONE 20 MG TABLET PO SCH ×2 (09:30→19:43)
[2017-01-02] MEDS: POTASSIUM CHLORIDE 20 MEQ TABLET.ER PO SCH (09:30)
[2017-01-02] MEDS: FUROSEMIDE 40 MG TABLET PO SCH (11:03)
[2017-01-02] MEDS: TERIPARATIDE SQ SCH (19:44)
[2017-01-02] MEDS: SIMVASTATIN 40 MG TABLET PO SCH (19:45)
[2017-01-03] MEDS: PSYLLIUM SEED 1 EACH PACKET PO SCH (05:27)
[2017-01-03] MEDS: OXYBUTYNIN CHLORIDE 5 MG TABLET PO SCH (08:21)
[2017-01-03] MEDS: FUROSEMIDE 40 MG TABLET PO SCH (08:22)
[2017-01-03] MEDS: ASPIRIN 325 MG TABLET PO SCH (08:22)
[2017-01-03] MEDS: GABAPENTIN 300 MG CAPSULE PO SCH (08:22)
[2017-01-03] MEDS: POTASSIUM CHLORIDE 20 MEQ TABLET.ER PO SCH (08:23)
[2017-01-03] MEDS: predniSONE 20 MG TABLET PO SCH (08:24)
[2017-01-03] MEDS: TRIAMCINOLONE ACETONIDE 0.1% 80GM TUBE TP SCH (08:25)
[2017-01-03 09:47] VITALS: BP 145/72
--- NOTE | 2017-01-03 11:42 | Discharge Summary ---
DATE OF ADMISSION: December 04, 2016 DATE OF DISCHARGE: January 03, 2017 DIAGNOSES ON THIS HOSPITALIZATION: 1. Status post left shoulder replacement. 2. History of osteoarthritis. 3. Gout. 4. Chronic urinary incontinence. 5. Constipation. 6. Hyperlipidemia. SUMMARIZATION OF ADMISSION HISTORY AND PHYSICAL: This is a 81-year-old female patient of Dr. Tad Herrera here in [place] who presented after a referral to Dr. Soni for a left shoulder revision. She had a left shoulder replacement done 2 years ago and it had become somewhat loose and she came back for surgery in regard to that. She had surgery done the last week of November. She really had a fairly unremarkable postoperative course. She was sent to us on 325 mg p.o. b.i.d. of aspirin for DVT prophylaxis. He did not want her to be on Lovenox. HOSPITAL COURSE: She actually did very well with therapy. Range of motion was improved but she will see Dr. Soni back so they can liberalize that. We will have her do physical therapy with home health on discharge. Otherwise, she did extremely well. MEDICATIONS ON DISCHARGE: 1. Aspirin 325 mg p.o. b.i.d. 2. Dulcolax 10 mg p.o. daily as needed for constipation. 3. Lasix 40 mg daily. 4. Gabapentin 300 mg p.o. b.i.d. 5. Ditropan 5 mg p.o. b.i.d. 6. Potassium chloride 20 mEq p.o. daily. 7. Metamucil 1 packet daily. 8. Simvastatin 40 mg once a day. 9. Forteo 0.08 mg by injection every night. DISCHARGE INSTRUCTIONS: 1. Home health on discharge for physical therapy. 2. Follow up with Dr. Soni as scheduled. 3. Follow up with Dr. Tad Herrera in 1 week. cc: Dr. Tad Herrera [facility]OSPITALFrancois
== END 2017-01-03 09:30 | disposition home or self-care (01) | DRG 565 ==
LOC: SOUTH 11:59
PROVIDERS: ADMIT Family Medicine; ATTEND Family Medicine
DX: Z96.612 Presence of left artificial shoulder joint (principal); I82.409 Acute embolism and thrombosis of unspecified deep veins of unspecified lower extremity; I10 Essential (primary) hypertension; E66.9 Obesity, unspecified; E78.5 Hyperlipidemia, unspecified; M10.9 Gout, unspecified; R32 Unspecified urinary incontinence; K59.00 Constipation, unspecified
CPT/HCPCS: 36415; 80053; 82306; 85025; 97110; 97112; 97116; 97162; 97530; 97535; A9270

== ENCOUNTER 2017-01-19 12:37 | Outpatient (CLI) | payer MEDICARE, OTHER | END 2017-01-19 12:40 | LOC: POD 12:37 | PROVIDERS: ATTEND Podiatrist | DX: B35.1 Tinea unguium (principal); M79.674 Pain in right toe(s); M79.675 Pain in left toe(s); M1A.0720 Idiopathic chronic gout, left ankle and foot, without tophus (tophi) | CPT/HCPCS: 11721; G0463 ==

== ENCOUNTER 2017-04-24 12:49 | Outpatient (CLI) | payer MEDICARE, OTHER | END 2017-04-24 12:50 | LOC: POD 12:49 | PROVIDERS: ATTEND Podiatrist | DX: B35.1 Tinea unguium (principal); M79.674 Pain in right toe(s); M79.675 Pain in left toe(s); M1A.0720 Idiopathic chronic gout, left ankle and foot, without tophus (tophi) | CPT/HCPCS: 11721; G0463 ==

== ENCOUNTER 2017-06-19 13:27 | Outpatient (CLI) | payer MEDICARE, OTHER | END 2017-06-19 13:30 | LOC: LAB 13:27 | PROVIDERS: ATTEND Clinical Nurse Specialist Medical-Surgical | DX: M81.0 Age-related osteoporosis without current pathological fracture (principal); E55.9 Vitamin D deficiency, unspecified; E21.3 Hyperparathyroidism, unspecified; Z87.310 Personal history of (healed) osteoporosis fracture; Z82.62 Family history of osteoporosis | CPT/HCPCS: 36415; 82306; 82310; 83970 ==

== ENCOUNTER 2017-08-03 12:33 | Outpatient (CLI) | payer MEDICARE, OTHER | END 2017-08-03 12:35 | LOC: POD 12:33 | PROVIDERS: ATTEND Podiatrist | DX: B35.1 Tinea unguium (principal); M79.674 Pain in right toe(s); M79.675 Pain in left toe(s); M1A.0720 Idiopathic chronic gout, left ankle and foot, without tophus (tophi) | CPT/HCPCS: 11721; G0463 ==

== ENCOUNTER 2017-11-02 13:01 | Outpatient (CLI) | payer MEDICARE, OTHER | END 2017-11-02 13:02 | LOC: POD 13:01 | PROVIDERS: ATTEND Podiatrist | DX: B35.1 Tinea unguium (principal); M79.674 Pain in right toe(s); M79.675 Pain in left toe(s); M1A.0720 Idiopathic chronic gout, left ankle and foot, without tophus (tophi) | CPT/HCPCS: 11721; G0463 ==

== ENCOUNTER 2017-12-18 13:44 | Outpatient (CLI) | payer MEDICARE, OTHER | END 2017-12-18 13:45 | LOC: LAB 13:44 | PROVIDERS: ATTEND Clinical Nurse Specialist Medical-Surgical | DX: M81.0 Age-related osteoporosis without current pathological fracture (principal); E55.9 Vitamin D deficiency, unspecified; Z87.310 Personal history of (healed) osteoporosis fracture; Z82.62 Family history of osteoporosis; E21.3 Hyperparathyroidism, unspecified | CPT/HCPCS: 36415; 82306; 82310 ==

== ENCOUNTER 2018-06-18 14:02 | Outpatient (CLI) | payer MEDICARE, OTHER | END 2018-06-18 14:03 | LOC: LAB 14:02 | PROVIDERS: ATTEND Clinical Nurse Specialist Medical-Surgical | DX: M81.0 Age-related osteoporosis without current pathological fracture (principal); E55.9 Vitamin D deficiency, unspecified; Z87.310 Personal history of (healed) osteoporosis fracture; Z82.62 Family history of osteoporosis | CPT/HCPCS: 36415; 82306; 82310 ==

== ENCOUNTER 2018-07-12 12:23 | Emergency (ER) | payer MEDICARE, OTHER ==
--- NOTE | 2018-07-12 13:53 | Diagnostic Imaging Report ---
<p>Your browser does not support iframes.</p> JING DE LUNA (RUSTIC FENCE BUILDER) - ER [facility] [address] [address] [facility] [address] [place], [place]. [address] Report Submission Date: Jul 12, 2018 1:39:30 PM CDT Patient Study Name: CHEYENNE KHAN Date: Jul 12, 2018 12:56:25 PM CDT Modality Type: CT\SR Gender: F Description: CT BRAIN W/O CONTRAST : 37 Institution: [facility] Physician: JING DE LUNA (RUSTIC FENCE BUILDER) - ER Examination: CT head without contrast History: FALL TODAY, SWELLING, CONTUSION TO RT SIDE OF HEAD Comparison exam: None available Technique: Noncontrast head CT protocol. Findings: Ventricles and sulci are prominent. Cerebrocerebellar parenchyma demonstrates periventricular low attenuation consistent with small vessel disease. No evidence for parenchymal hemorrhage. No evidence for mass or mass effect. No midline shift. No extra axial fluid collections. Partial visualization of the paranasal sinuses, mastoid air cells, orbits and skull without gross irregularity. Vascular calcifications. Large right superior soft tissue hematoma. Impression: Advanced age related changes. No acute parenchymal process. No hemorrhage. Large right superior soft tissue hematoma. Electronically signed on Jul 12, 2018 1:39:30 PM CDT by: Jimmy WHITE
--- NOTE | 2018-07-12 13:54 | Diagnostic Imaging Report ---
JING DE LUNA (FOUZIA) - ER [facility] [address] [facility] [address] [place], [place]. [address] Report Submission Date: Jul 12, 2018 1:52:10 PM CDT Patient Study Name: CHEYENNE KHAN Date: Jul 12, 2018 1:00:01 PM CDT Modality Type: CT\SR Gender: F Description: CT C-SPINE W/O CONTRAS : 37 Institution: [facility] Physician: JING DE LUNA (FOUZIA) - ER Examination: CT cervical spine History: NECK PAIN AFTER FALL TODAY Comparison exams: None provided Technique: CT cervical spine axial imaging with sagittal and coronal reconstruction Findings: Sagittal reconstruction demonstrates anterior fusion from C3 through C6. Mild listhesis of C6/C7. No anterior compression deformity. Multilevel osteophyte formation with disc space narrowing. Coronal reconstruction does not demonstrate locked or perched facets. Transverse lucency involving the mid odontoid region of C2 with 1 mm displacement. Atlantoaxial degenerative changes. Crusiform ligament calcifications. Carotid artery vascular calcifications. Axial imaging obtained from the skull base through T1 Lamina and pedicles are intact. Multilevel facet degenerative changes associated with central canal and neuroforaminal narrowing. No prevertebral soft tissue abnormality. Impression: Multilevel degenerative changes. Transverse fracture involving the mid odontoid region of C2 with 1 mm displacement. Discussed findings with FOUZIA De Luna at 1347 hours on 12 July 2018 CDT Electronically signed on Jul 12, 2018 1:52:10 PM CDT by: Jimmy WHITE
[2018-07-12 14:05] VITALS: BP 161/85
--- NOTE | 2018-07-12 14:16 | ED Physician Documentation ---
Fall - HISTORIAN Historian: patient - HPI Stated Complaint: fall and hit head Chief Complaint: Fall Onset: just prior to arrival Where: home Context: tripped (on top step of stairs) r: moderate Associated Symptoms:: no loss of consciousness Location of Pain/Injury: head, neck Injury to Right Extremity: none Injury to Left Extremity: none Further Comments: yes (83 year old female patient presents via EMS after a fall on the top step when she was walking into her house. The patient crawled to her recliner and called her sons. She denies LOC. Complains of bilateral neck pain. C-Collar placed on arrival.) - ROS CONST: no problems NEURO: denies: dizziness, anxiety, depression MS/SKIN/LYMPH: denies: weakness, numbness, neck pain, back pain, ankle swelling, leg swelling, rash, other EYES/ENT: none CVS/RESP: none GI/: denies: nausea, vomiting - PAST HX Past History: other (Osteoarthritis, HTN, Gout, urinary incontinence, constipation, HLD Surgical: Bilateral shoulder replacement, bilateral total knees, cholecystectomy, ankle fusion, cervical fusion 2012 C3-6, Hysterectomy, hip arthroplasties, bladder suspension) Allergies/Adverse Reactions: Allergies Allergy/AdvReac Type Severity Reaction Status Date / Time No Known Drug Allergies Allergy Verified 06/01/15 23:34 Home Medications: Ambulatory Orders Medication Instructions Recorded Gabapentin 300 mg PO BID 05/14/15 Hydrocodone/Acetaminophen 1 each PO Q4 PRN 05/14/15 [Hydrocodon-Acetaminophen 5-325] Lovastatin 40 mg PO HS 05/14/15 Polyethylene Glycol 3350 [Miralax] 17 gm PO 1100 05/14/15 Potassium Chloride [Klor-Con M20] 20 meq PO DAILY 05/14/15 Sennosides/Docusate Sodium 2 each PO BID 05/14/15 [Senna-Docusate Sodium Tablet] Triamterene/Hydrochlorothiazid 1 each PO D 05/14/15 [Triamterene-Hctz 75-50 mg Tab] - SOCIAL HX Smoking History: non-smoker - FAMILY HX Family History: denies: none - VITAL SIGNS Vital Signs: Vital Signs Temp Pulse Resp BP Pulse Ox 95.2 F L 85 20 161/85 90 L 07/12/18 12:37 07/12/18 14:00 07/12/18 14:00 07/12/18 14:00 07/12/18 14:00 - REVIEWED ASSESSMENTS Nursing Assessment Reviewed: Yes Vitals Reviewed: Yes Progress - Progress Progress: Case discussed with Dr Maddox - orders to keep patient in hard collar until she is seen by ortho. Follow up appointment for Sunday morning at 9am. Reviewed plan of care with patient and family. Explained importance of keeping collar in place. Questions answered. Reviewed signs and symptoms to return to ER for - verbalized understanding. ED Results Lab/Radiology - Radiology Radiology Impressions: Examination: CT cervical spine History: NECK PAIN AFTER FALL TODAY Comparison exams: None provided Technique: CT cervical spine axial imaging with sagittal and coronal reconstruction Findings: Sagittal reconstruction demonstrates anterior fusion from C3 through C6. Mild listhesis of C6/C7. No anterior compression deformity. Multilevel osteophyte formation with disc space narrowing. Coronal reconstruction does no t demonstrate locked or perched facets. Transverse lucency involving the mid odontoid region of C2 with 1 mm displacement. Atlantoaxial degenerative changes. Crusiform ligament calcifications. Carotid artery vascular calcifications. Axial imaging obtained from the skull base through T1 Lamina and pedicles are intact. Multilevel facet degenerative changes associated with central canal and neuroforaminal narrowing. No prevertebral soft tissue abnormality. Impression: Multilevel degenerative changes. Transverse fracture involving the mid odontoid region of C2 with 1 mm displacement. 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 distress, heart sounds nml Abdomen: soft, no organomegaly, normal bowel sounds, no abdominal bruit, no distension Neuro: oriented x3, CN's nml as tested, sensation nml, motor nml, mood/affect nml, medical data entry clerk nml, reflexes nml, medical data entry clerk symmetrical Skin: color nml, no rash, ecchymosis (right frontal scalp - hematoma), nml palp., dry Back: normal inspection, no CVA tenderness Extremities: atraumatic, pelvis stable, hips non-tender, no pedal edema, nml ROM , nml color/temp - [place] Coma Score Eyes Open: Spontaneous Speech: Oriented Motor: Obeys Commands Discharge Clincal Impression: Fall Qualifiers: Encounter type: initial encounter Qualified Code(s): W19.XXXA - Unspecified fall, initial encounter C2 cervical fracture Qualifiers: Encounter type: initial encounter Fracture type: closed Fracture morphology: other fracture Fracture alignment: displaced Qualified Code(s): S12.190A - Other displaced fracture of second cervical vertebra, initial encounter for closed fracture Additional Instructions: Keep your c-collar on at all times until you are seen by Dr Maddox on Sunday Follow up: Sunday, July 15, 2018 9:00 [facility] [address] [place] [id number] Return to ER if you have any difficulty with breathing, movement of extremities, loss of bowel; or severe pain. Condition: Stable Disposition: 01 HOME, SELF-CARE Decision to Admit: NO Decision Time: 14:19
[2018-07-12] MEDS: ACETAMINOPHEN 500 MG TABLET PO ONE (14:21)
== END 2018-07-12 14:24 | disposition home or self-care (01) ==
LOC: ED 12:23
DX: S12.190A Other displaced fracture of second cervical vertebra, initial encounter for closed fracture (principal); W10.9XXA Fall (on) (from) unspecified stairs and steps, initial encounter; Y93.01 Activity, walking, marching and hiking; Y92.008 Other place in unspecified non-institutional (private) residence as the place of occurrence of the external cause
CPT/HCPCS: 70450; 72125; 99284; 99285; S1016

== ENCOUNTER 2018-07-31 09:55 | Outpatient (CLI) | payer MEDICARE, OTHER | END 2018-07-31 09:57 | LOC: LAB 09:55 | PROVIDERS: ATTEND Clinical Nurse Specialist Medical-Surgical | DX: M81.0 Age-related osteoporosis without current pathological fracture (principal); E55.9 Vitamin D deficiency, unspecified; Z87.310 Personal history of (healed) osteoporosis fracture; Z82.62 Family history of osteoporosis | CPT/HCPCS: 36415; 82310 ==

== ENCOUNTER 2018-12-25 10:48 | Outpatient (CLI) | payer MEDICARE, OTHER | END 2018-12-25 10:50 | LOC: LAB 10:48 | PROVIDERS: ATTEND Clinical Nurse Specialist Medical-Surgical | DX: M81.0 Age-related osteoporosis without current pathological fracture (principal); E55.9 Vitamin D deficiency, unspecified; Z87.310 Personal history of (healed) osteoporosis fracture; Z82.62 Family history of osteoporosis | CPT/HCPCS: 36415; 82306; 82310 ==